=== PATIENT | female | born 1975 | race Caucasian/White ===

== ENCOUNTER 2016-03-22 18:28 | Emergency (ER) | payer OTHER ==
[2016-03-22 19:33] VITALS: BP 149/80
--- NOTE | 2016-03-22 19:39 | UC ---
Lower Extremity/Ankle HPI - HPI Summary HPI Summary: slipped and fell on ice this morning about 645--pain in lateral right foot able to weight bear - History of Current Complaint Chief Complaint: UCLowerExtremity Stated Complaint: FOOT INJURY Time Seen by Provider: 03/22/16 19:39 Hx Obtained From: Patient Hx Last Menstrual Period: 1 WEEK AGO ?: No Onset/Duration: Sudden Onset, Lasting Hours Severity Initially: Moderate Severity Currently: Moderate Pain Intensity: 5 Pain Scale Used: 0-10 Numeric Aggravating Factor(s): Standing, Ambulation Alleviating Factor(s): Rest, Elevation Able to Bear Weight: Yes - Allergies/Home Medications Allergies/Adverse Reactions: Allergies Allergy/AdvReac Type Severity Reaction Status Date / Time No Known Allergies Allergy Verified 03/22/16 19:32 Home Medications: Home Medications Ibuprofen TAB* [Advil TAB*] 800 mg PO PRN 03/22/16 [History] Multiple Vitamins W/ Minerals [Multivitamin Adults] 1 tab PO DAILY 03/22/16 [ History Confirmed 03/22/16] PMH/Surg Hx/FS Hx/Imm Hx Previously Healthy: Yes - Surgical History Surgical History: Yes Surgery Procedure, Year, and Place: - Family History Known Family History: Positive: None Family History: no reported cardiovascular issues in family lineage - Social History Occupation: Employed Full-time Lives: With Family Alcohol Use: None Substance Use Type: None Smoking Status (MU): Current Every Day Smoker Type: Cigarettes Amount Used/How Often: 1/2 PPD Review of Systems Constitutional: Negative Skin: Negative Eyes: Negative ENT: Negative Respiratory: Negative Cardiovascular: Negative Gastrointestinal: Negative Genitourinary: Negative Motor: Negative Musculoskeletal: Arthralgia - right 4/5 metatarsal Neurological: Negative Psychological: Negative All Other Systems Reviewed And Are Negative: Yes Physical Exam Triage Information Reviewed: Yes Appearance: Well-Appearing, No Pain Distress, Well-Nourished Vital Signs: Initial Vital Signs Temp 98.8 F 03/22/16 19:29 Pulse 91 03/22/16 19:29 Resp 20 03/22/16 19:29 BP 149/80 03/22/16 19:29 Pulse Ox 98 03/22/16 19:29 Vital Signs Reviewed: Yes Eye Exam: Normal Eyes: Positive: Conjunctiva Clear ENT Exam: Normal ENT: Positive: Normal ENT inspection, Hearing grossly normal, Pharynx normal, Nasal congestion, Nasal drainage. Negative: Tonsillar swelling, Tonsillar exudate, Trismus, Muffled/hoarse voice Dental Exam: Normal Neck exam: Normal Neck: Positive: Supple, Nontender, No Lymphadenopathy Respiratory Exam: Normal Respiratory: Positive: Chest non-tender, No respiratory distress, No accessory muscle use Cardiovascular Exam: Normal Cardiovascular: Positive: RRR, Pulses Normal, Brisk Capillary Refill Musculoskeletal Exam: Normal Musculoskeletal: Positive: Strength Intact, ROM Intact, No Edema Neurological Exam: Normal Neurological: Positive: Alert, Muscle Tone Normal, Fatigued Psychological Exam: Normal Psychological: Positive: Normal Response To Family Skin Exam: Normal Diagnostics - Radiology No standard instances Xray Interpretation: No Acute Changes Radiology Interpretation Completed By: Radiologist Re-Evaluation - Re-Evaluation First Eval Change: Improved - lazara wrap, post op shoe, rice, follow with ortho re-check prn Lower Extremity Course/Dx - Course Course Of Treatment: rice, lazara, post op shoe, ibuprofen follow with ortho prn - Differential Dx/Diagnosis Differential Diagnosis/HQI/PQRI: Contusion, Fracture (Open), Sprain, Strain Provider Diagnoses: Right lateral foot contusion Discharge - Discharge Plan Condition: Stable Disposition: HOME Patient Education Materials: Ibuprofen (By mouth), Foot Contusion (ED), RICE Therapy (ED) Forms: *Work Release Referrals: Rosa Elena Bowens MD [Medical Doctor] - 5 Days No Primary Care Phys,NOPCP [Primary Care Provider] -
--- NOTE | 2016-03-22 20:15 | RAD ---
HISTORY: Fifth metatarsal pain after fall COMPARISONS: None VIEWS: 3, Frontal, lateral, and oblique views of the right foot FINDINGS: BONE DENSITY: Normal. BONES: There is no displaced fracture. There are calcaneal enthesophytes. JOINTS: There is osteoarthritis of the first MTP joint. There is osteoarthritis of the midfoot. ALIGNMENT: There is mild hallux valgus SOFT TISSUES: Unremarkable. OTHER FINDINGS: None. IMPRESSION: OSTEOARTHRITIS. NO ACUTE OSSEOUS INJURY. IF SYMPTOMS PERSIST, RECOMMEND REPEAT IMAGING.
== END 2016-03-22 21:00 | disposition home or self-care (01) ==
LOC: UCEAST 18:28
DX: S90.31XA Contusion of right foot, initial encounter (principal); W00.0XXA Fall on same level due to ice and snow, initial encounter; Y93.9 Activity, unspecified; Y92.9 Unspecified place or not applicable; F17.210 Nicotine dependence, cigarettes, uncomplicated
CPT/HCPCS: 99203; G0463

== ENCOUNTER 2017-01-21 16:10 | Emergency (ER) | payer OTHER ==
[2017-01-21 16:24] VITALS: BP 146/85
--- NOTE | 2017-01-21 18:29 | UC ---
Inocencia Manning Gabriel, scribed for Hong Heaton MD on 01/21/17 at 1808 . General HPI - HPI Summary HPI Summary: This patient is a 41 year old F presenting to [facility] with a chief complaint of yellow diarrhea since 4 days ago. She reports 15 BMs a day. The patient rates the pain 5/10 in severity. Symptoms alleviated by nothing. Pt has taken Imodium with no relief. Patient reports nausea and ABD pain. Patient denies vomiting, fever, melena, dizziness, lightheadedness, back pain, and ABD distension. Patient reports similar symptoms 2 weeks ago that lasted for 5 days, resolved but recently returned. She denies recently travel or recently antibiotic usage. - History of Current Complaint Chief Complaint: UCGI Stated Complaint: GI UPSET Time Seen by Provider: 01/21/17 17:55 Hx Obtained From: Patient Hx Last Menstrual Period: 1 WEEK AGO Onset/Duration: Lasting Days - 3, Still Present Timing: Constant Onset Severity: Moderate Current Severity: Moderate Pain Intensity: 5 Pain Location at: suprapubic Associated Signs & Symptoms: Positive: Other - nausea and ABD pain - Allergy/Home Medications Allergies/Adverse Reactions: Allergies Allergy/AdvReac Type Severity Reaction Status Date / Time No Known Allergies Allergy Verified 03/22/16 19:32 Home Medications: Home Medications Ibuprofen [Advil] 800 mg PO 01/21/17 [History] PMH/Surg Hx/FS Hx/Imm Hx Previously Healthy: Yes - Surgical History Surgical History: Yes Surgery Procedure, Year, and Place: - Family History Known Family History: Positive: None Family History: no reported cardiovascular issues in family lineage - Social History Occupation: Employed Full-time Alcohol Use: Rare Substance Use Type: None Smoking Status (MU): Light Every Day Tobacco Smoker Type: Cigarettes Amount Used/How Often: 1/2 PPD Review of Systems Constitutional: Negative - fever Gastrointestinal: Abdominal Pain, Diarrhea, Nausea All Other Systems Reviewed And Are Negative: Yes Physical Exam Triage Information Reviewed: Yes Appearance: Well-Appearing, No Pain Distress Vital Signs: Initial Vital Signs Temp 96.5 F 01/21/17 16:21 Pulse 124 01/21/17 16:21 Resp 18 01/21/17 16:21 BP 146/85 01/21/17 16:21 Pulse Ox 97 01/21/17 16:21 Eyes: Positive: Conjunctiva Clear ENT: Positive: Normal ENT inspection, Pharynx normal, TMs normal. Negative: Nasal congestion Neck: Positive: Nontender Respiratory: Positive: Chest non-tender, Lungs clear Cardiovascular: Positive: RRR, No Murmur, Tachycardia Abdomen Description: Positive: Nontender Musculoskeletal: Positive: Strength Intact, ROM Intact Neurological: Positive: Alert, Muscle Tone Normal Psychological: Positive: Age Appropriate Behavior Skin Exam: Normal Course/Dx - Course Course Of Treatment: 41 yr old with nausea and also reports 15 episodes of watery diarrhea for several days. HR is up. She refuses IV line, fluid bolus and transport to ER for further eval of the persitent diarrhea and elevated HR. She signed out AMA. - Differential Dx - Multi-Symptom Provider Diagnoses: tachycardia. Diarrhea. abdominal pain bilateral lower Discharge - Discharge Plan Condition: Good Disposition: AGAINST MEDICAL ADVICE Referrals: No Primary Care Phys,NOPCP [Primary Care Provider] - The documentation as recorded by the Inocencia coronel Gabriel accurately reflects the service I personally performed and the decisions made by me, Hong Heaton MD.
== END 2017-01-21 18:12 | disposition left against medical advice (07) ==
LOC: UCEAST 16:10
DX: R00.0 Tachycardia, unspecified (principal); R19.7 Diarrhea, unspecified; R10.32 Left lower quadrant pain; R10.31 Right lower quadrant pain
CPT/HCPCS: 99212; G0463

== ENCOUNTER 2017-01-21 18:36 | Emergency (ER) | payer OTHER ==
[2017-01-21] MEDS ORDERED: Diphenoxylat/Atrop 2.5-0.025M* 1 TAB PO ONE (22:12)
[2017-01-21 22:35] LABS: Hematocrit 54 % (35-47); Hemoglobin 18.1 g/dl (12.0-16.0); Mean Corpuscular HGB Conc 34 g/dl (31-36); Mean Corpuscular Hemoglobin 30 pg (27-31); Mean Corpuscular Volume 88 fL (80-97); Mean Platelet Volume 8 um3 (7.4-10.4); Red Blood Count 6.11 10^6/ul (4.0-5.4); Red Cell Distribution Width 15 % (10.5-15); White Blood Count 19.4 10^3/ul (3.5-10.8)
[2017-01-21 22:36] LABS: Add Diff/Slide Review? Slide Review Added; Comments Flag Yes
[2017-01-21 22:51] LABS: ALT 19 U/L (7-52); AST 13 U/L (13-39); Albumin 4.1 g/dL (3.2-5.2); Alkaline Phosphatase 55 U/L (34-104); Amylase 10 U/L (29-103); Anion Gap 7 mmol/L (2-11); BUN/Creatinine Ratio 11.1 (8-20); Blood Urea Nitrogen 14 mg/dL (6-24); C Reactive Protein 7.88 mg/L (< 5.00); CO2 Carbon Dioxide 18 mmol/L (22-32); Calcium 9.1 mg/dL (8.6-10.3); Chloride 107 mmol/L (101-111); EGFR African American 59.6 (>60); EGFR Non-African American 46.3 (>60); Globulin 3.1 g/dL (2-4); Glucose 107 mg/dL (70-100); Lipase < 10 U/L (11.0-82.0); Potassium 3.4 mmol/L (3.5-5.0); Sodium 132 mmol/L (133-145); Total Protein 7.2 g/dL (6.4-8.9)
[2017-01-21] MEDS ORDERED: NS 0.9% 1000 ML* 1,000 ML IV ONE (23:07)
[2017-01-22 01:04] VITALS: BP 115/74
[2017-01-22] MEDS ORDERED: Ciprofloxacin TAB* 500 MG PO ONE (01:33)
[2017-01-22] MEDS ORDERED: metroNIDAZOLE TAB* 250 MG PO ONE (01:33)
--- NOTE | 2017-01-22 02:02 | ED ---
John Manning Rebecca, scribed for Scar Gleason MD on 01/21/17 at 2127 . Abdominal Pain/Female - HPI Summary HPI Summary: Pt is a 41 y/o F who presents to ED referred from [facility] c/o nausea and diarrhea. Sx aggravated and alleviated by nothing, unchanged by Immodium. On triage, pt reported mild abdominal pain, ranked 3/10, though on examination she denies any pain. Denies blood in stool, vomiting and fever. Has not been on any Abx recently. - History of Current Complaint Chief Complaint: EDNauseaVomitDiarrh Stated Complaint: DIARRHEA/SENT FROM [facility] Time Seen by Provider: 01/21/17 19:09 Hx Obtained From: Patient Hx Last Menstrual Period: 1 WEEK AGO Onset/Duration: Still Present Severity Initially: Mild - 3/10 Severity Currently: None Pain Intensity: 0 Pain Scale Used: 0-10 Numeric Aggravating Factor(s): Nothing Alleviating Factor(s): Nothing Associated Signs and Symptoms: Positive: Nausea, Diarrhea. Negative: Fever, Blood in Stool, Vomiting Allergies/Adverse Reactions: Allergies Allergy/AdvReac Type Severity Reaction Status Date / Time No Known Allergies Allergy Verified 03/22/16 19:32 PMH/Surg Hx/FS Hx/Imm Hx Cardiovascular History: Denies: Hx Congenital Heart Disease, Hx Myocardial Infarction Respiratory History: Denies: Hx Pneumonia - Surgical History Surgery Procedure, Year, and Place: Infectious Disease History: No Infectious Disease History: Denies: Traveled Outside the [place] in Last 30 Days - Family History Known Family History: Negative: Cardiac Disease Family History: no reported cardiovascular issues in family lineage - Social History Alcohol Use: Rare Substance Use Type: Reports: None Smoking Status (MU): Light Every Day Tobacco Smoker Type: Cigarettes Amount Used/How Often: 1/2 PPD Review of Systems Negative: Fever Positive: Abdominal Pain - on triage, now resolved, Diarrhea, Nausea, Other - NEGATIVE: Blood in stool. Negative: Vomiting All Other Systems Reviewed And Are Negative: Yes Physical Exam - Summary Physical Exam Summary: VITAL SIGNS: Reviewed. GENERAL: ~Patient is a morbidly obese female who is lying comfortable in the stretcher. Patient is not in any acute respiratory distress. HEAD AND FACE: No signs of trauma. No ecchymosis, hematomas or skull depressions. No sinus tenderness. EYES: PERRLA, EOMI x 2, No injected conjunctiva, no nystagmus. EARS: Hearing grossly intact. Ear canals and tympanic membranes are within normal limits. MOUTH: Oropharynx within normal limits. NECK: Supple, trachea is midline, no adenopathy, no JVD, no carotid bruit, no c- spine tenderness, neck with full ROM. CHEST: Symmetric, no tenderness at palpation LUNGS: Clear to auscultation bilaterally. No wheezing or crackles. CVS: Regular rate and rhythm, S1 and S2 present, no murmurs or gallops appreciated. ABDOMEN: Soft, non-tender. No signs of distention. No rebound no guarding, and no masses palpated. Bowel sounds are hyperactive. EXTREMITIES: FROM in all major joints, no edema, no cyanosis or clubbing. NEURO: Alert and oriented x 3. No acute neurological deficits. Speech is normal and follows commands. SKIN: Dry and warm Triage Information Reviewed: Yes Vital Signs On Initial Exam: Initial Vitals Temp Pulse Resp BP Pulse Ox 98.4 F 117 20 137/93 95 01/21/17 18:42 01/21/17 18:42 01/21/17 18:42 01/21/17 18:42 01/21/17 18:42 Vital Signs Reviewed: Yes Diagnostics - Vital Signs Vital Signs Temp Pulse Resp BP Pulse Ox 01/21/17 18:42 98.4 F 117 20 137/93 95 - Laboratory Result Diagrams: 01/21/17 22:25 01/21/17 22:25 Lab Statement: Any lab studies that have been ordered have been reviewed, and results considered in the medical decision making process. Re-Evaluation - Re-Evaluation First Eval Re-Evaluation Time: 01:53 Comment: Pt's sx have improved. Abdominal Pain Fem Course/Dx - Course Course Of Treatment: Pt is a 41 y/o F who presents to ED referred from [facility] c/ o nausea and diarrhea. Sx unchanged by Immodium. On triage, pt reported mild abdominal pain, ranked 3/10, though on examination she denies any pain. Denies blood in stool, vomiting and fever. Has not been on any Abx recently. Pt received Cipro, Flagyl, Lomotil and fluids in the ED which improved sx. She will be D/C to home with Dx of infectious diarrhea with Rx for Cipro and Flagyl. She understands and agrees. Elevated BP noted. Medications reviewed. - Diagnoses Provider Diagnoses: Infectious diarrhea Discharge - Discharge Plan Condition: Stable Disposition: HOME Prescriptions: Ciprofloxacin TAB* [Cipro 500 MG TAB*] 500 mg PO BID #14 tab Metronidazole [Flagyl 500 MG TAB] 500 mg PO TID #21 tab Patient Education Materials: Acute Diarrhea (ED) Referrals: [facility] [Outside] Additional Instructions: RETURN TO EMERGENCY DEPARTMENT FOR ANY NEW OR WORSENING SYMPTOMS The documentation as recorded by the John coronel Rebecca accurately reflects the service I personally performed and the decisions made by , Scar Gleason MD.
--- NOTE | 2017-01-23 01:10 | PN ---
Progress Note - Progress Note Date of Service: 01/23/17 Note: Patient c diff neg. will wait for final stool cultures.
--- NOTE | 2017-01-23 12:28 | ED ---
Progress - Progress Note Progress Note: Pt's Re-Evaluation - Re-Evaluation First Eval Re-Evaluation Time: 01:53 Comment: Pt's sx have improved. Course/Dx - Course Course Of Treatment: Pt is a 41 y/o F who presents to ED referred from [facility] c/ o nausea and diarrhea. Sx unchanged by Immodium. On triage, pt reported mild abdominal pain, ranked 3/10, though on examination she denies any pain. Denies blood in stool, vomiting and fever. Has not been on any Abx recently. Pt received Cipro, Flagyl, Lomotil and fluids in the ED which improved sx. She will be D/C to home with Dx of infectious diarrhea with Rx for Cipro and Flagyl. She understands and agrees. Elevated BP noted. Medications reviewed. - Diagnoses Provider Diagnoses: Infectious diarrhea
--- NOTE | 2017-01-23 12:32 | ED ---
Progress - Progress Note Progress Note: Pt's stool cx reveals + immunoassay. This correlates w/ note reporting diarrhea. She was d/c'd w/ cipro. No change in tx at this time. Re-Evaluation - Re-Evaluation First Eval Re-Evaluation Time: 01:53 Comment: Pt's sx have improved. Course/Dx - Course Course Of Treatment: Pt is a 41 y/o F who presents to ED referred from [facility] c/ o nausea and diarrhea. Sx unchanged by Immodium. On triage, pt reported mild abdominal pain, ranked 3/10, though on examination she denies any pain. Denies blood in stool, vomiting and fever. Has not been on any Abx recently. Pt received Cipro, Flagyl, Lomotil and fluids in the ED which improved sx. She will be D/C to home with Dx of infectious diarrhea with Rx for Cipro and Flagyl. She understands and agrees. Elevated BP noted. Medications reviewed. - Diagnoses Provider Diagnoses: Infectious diarrhea
== END 2017-01-22 02:21 | disposition home or self-care (01) ==
LOC: ED 18:36
DX: A09 Infectious gastroenteritis and colitis, unspecified (principal); R11.0 Nausea; F17.210 Nicotine dependence, cigarettes, uncomplicated; E66.01 Morbid (severe) obesity due to excess calories
CPT/HCPCS: 36415; 80053; 82150; 82270; 83630; 83690; 84702; 85025; 86140; 87045; 87046; 87077; 87493; 87899; 96360; 99283; A9270-GY

== ENCOUNTER 2019-05-01 10:52 | Day surgery (SDC) | payer OTHER ==
--- NOTE | 2019-05-01 11:13 | ED ---
Abdominal Pain/Female - HPI Summary HPI Summary: This pt is a 43 Y/O F presenting to [facility] with a CC of RLQ abdominal pain that is rated an 8/10 in severity and has been intermittent since last weekend. She states that she has had diarrhea starting today accompanied by increasing abdominal pain this morning. She also states that she has had chills during these episodes. She states a decreased appetite. She states that she is recently getting over a cold that her mother had. Pt denies any fever, chills, erythema of eyes, sore throat, CP, SOB, cough, N/V, dysuria, hematuria, myalgia , edema, rash, or dizziness. She has a PMHx of ovarian cysts. She has no aggravating or alleviating symptoms. - History of Current Complaint Chief Complaint: EDNolberto Stated Complaint: LOW ABD PAIN PER PT Time Seen by Provider: 05/01/19 11:10 Hx Obtained From: Patient ?: No Onset/Duration: Sudden Onset, Lasting Weeks - 1, Still Present Timing: Intermittent Episode Lasting Severity Initially: Moderate Severity Currently: Severe Pain Intensity: 8 Pain Scale Used: 0-10 Numeric Location: Discrete At: RLQ Radiates: No Aggravating Factor(s): Nothing Alleviating Factor(s): Nothing Associated Signs and Symptoms: Positive: Negative - chills, erythema of eyes, sore throat, SOB, cough, N/V, dysuria, hematuria, myalgia, edema, rash, Decreased Appetite, Diarrhea. Negative: Fever, Chest Pain, Dizzy, Urinary Symptoms, Nausea, Vomiting Allergies/Adverse Reactions: Allergies Allergy/AdvReac Type Severity Reaction Status Date / Time No Known Allergies Allergy Verified 05/01/19 10:56 Home Medications: Home Medications Ibuprofen TAB* [Advil TAB*] 200 mg PO Q6H PRN 05/01/19 [History Confirmed ] Multivitamins/Minerals TAB* [Theragran/minerals TAB*] 1 tab PO DAILY 05/01/19 [ History Confirmed 05/01/19] PMH/Surg Hx/FS Hx/Imm Hx Previously Healthy: Yes Cardiovascular History: Denies: Hx Congenital Heart Disease, Hx Myocardial Infarction Respiratory History: Denies: Hx Pneumonia - Cancer History Hx Chemotherapy: No Hx Radiation Therapy: No - Surgical History Surgical History: Yes Surgery Procedure, Year, and Place: - Immunization History Immunizations Up to Date: Yes Infectious Disease History: No Infectious Disease History: Denies: Traveled Outside the [place] in Last 30 Days - Family History Known Family History: Negative: Cardiac Disease Family History: no reported cardiovascular issues in family lineage - Social History Alcohol Use: Rare Substance Use Type: Reports: None Hx Tobacco Use: Yes Smoking Status (MU): Light Every Day Tobacco Smoker Type: Cigarettes Amount Used/How Often: 1/2 PPD Review of Systems Positive: Chills. Negative: Fever Negative: Erythema Negative: Sore Throat Negative: Chest Pain Negative: Shortness Of Breath, Cough Positive: Abdominal Pain - RLQ, Diarrhea. Negative: Vomiting, Nausea Negative: dysuria, hematuria Negative: Myalgia Negative: Rash Neurological/Mental Status: Negative - dizziness All Other Systems Reviewed And Are Negative: Yes Physical Exam - Summary Physical Exam Summary: Constitutional: Well-developed, Well-nourished, Alert. (-) Distressed, Body limited by body habitus Skin: Warm, Dry HENT: Normocephalic; Atraumatic Eyes: Conjunctiva normal Neck: Musculoskeletal ROM normal neck. (-) JVD, (-) Stridor, (-) Tracheal deviation Cardio: Rhythm regular, rate normal, Heart sounds normal; Intact distal pulses; The pedal pulses are 2+ and symmetric. Radial pulses are 2+ and symmetric. (-) Murmur Pulmonary/Chest wall: Effort normal. (-) Respiratory distress, (-) Wheezes, (-) Rales Abd: Soft, RLQ tenderness, (-) Distension, (-) Guarding, (-) Rebound Musculoskeletal: (-) Edema Lymph: (-) Cervical adenopathy Neuro: Alert, Oriented x3 Psych: Mood and affect Normal Triage Information Reviewed: Yes Vital Signs On Initial Exam: Initial Vitals Temp Pulse Resp BP Pulse Ox 99.1 F 105 16 160/94 96 05/01/19 10:53 05/01/19 10:53 05/01/19 10:53 05/01/19 10:53 05/01/19 10:53 Vital Signs Reviewed: Yes Procedures - Sedation Patient Received Moderate/Deep Sedation with Procedure: No Diagnostics - Vital Signs Vital Signs Temp Pulse Resp BP Pulse Ox 05/01/19 10:53 99.1 F 105 16 160/94 96 - Laboratory Result Diagrams: 05/01/19 11:36 05/01/19 11:36 Lab Statement: Any lab studies that have been ordered have been reviewed, and results considered in the medical decision making process. - CT CT A/P CT Interpretation Completed By: Radiologist Summary of CT Findings: 1. 5.6 CM OVARIAN CYST. 2. FIBROID UTERUS. 3. HEPATOMEGALY WITH FATTY INFILTRATION OF THE LIVER. 4. NORMAL APPENDIX. ED physician has reviewed this report. - Ultrasound Transvaginal US Ultrasound Interpretation Completed By: Radiologist Summary of Ultrasound Findings: 1. The left ovary was not visualized. The right ovary contains a simple appearing 4.9 cm cyst. The right ovarian Doppler signal is scant (could be related to difficult visualization). 2. Fundal uterine fibroid up to 13 cm. ED ida has reviewed this report. Re-Evaluation - Re-Evaluation First Eval Re-Evaluation Time: 14:22 Change: Unchanged Comment: Radiologist informed that the US Transvaginal taken orignially had a full bladder presentation. Another US will not provide any extra help. Second Eval Re-Evaluation Time: 14:39 Change: Worse Comment: Pt states that her pain is rated an 8/10 in severity. Abdominal Pain Fem Course/Dx - Course Course Of Treatment: This pt is a 43 Y/O F presenting to [facility] with a CC of RLQ abdominal pain that is rated an 8/10 in severity and has been intermittent since last weekend. She states that she has had diarrhea starting today accompanied by increasing abdominal pain this morning. She also states that she has had chills during these episodes. She states a decreased appetite. She states that she is recently getting over a cold that her mother had. Her PE found RLQ tenderness. Her PE was limited due to body habitus. She has abnormalities in her WBC, RBC, Absolute neuts, absolute monos, C-Reactive proteins, and Lipase. Transvaginal US: 1. The left ovary was not visualized. The right ovary contains a simple appearing 4.9 cm cyst. The right ovarian Doppler signal is scant (could be related to difficult visualization). 2. Fundal uterine fibroid up to [address] Baptiste, radiologist, recommended Follow up CT, if equivocal fill bladder and repeat US. CT A/P: 1. 5.6 CM OVARIAN CYST. 2. FIBROID UTERUS. 3. HEPATOMEGALY WITH FATTY INFILTRATION OF THE LIVER. 4. NORMAL APPENDIX. Pt will receive a full bladder US. Radiologist informed that the US Transvaginal taken orignially had a full bladder presentation. Another US will not provide any extra help. On re- evaluation at 1437 the pt reported pain 8/[address] Munoz, [employer], will see the pt in the ED and re-evaluate the pt for potential admission due to concerns over ovarian torsion at. Dr. Munoz admitted the pt at 1547 to surgery. She was diagnosed ovarian torsion. - Diagnoses Provider Diagnoses: Ovarian torsion - Provider Notifications Discussed Care Of Patient With: Dariana Munoz Time Discussed With Above Provider: 15:47 Instructed by Provider To: Admit As Inpatient Admit/Transition Orders Completed By ED Provider: Yes - Critical Care Time Critical Care Time: 30-74 min - 45 minutes Discharge ED - Sign-Out/Discharge Documenting (check all that apply): Patient Departure - admitted - Discharge Plan Condition: Good Disposition: ADMITTED TO [facility] Referrals: Mireya Thornton MD [Primary Care Provider] - - Attestation Statements Document Initiated by Scribe: Yes Documenting Scribe: Jaylen Morales Provider For Whom Scribe is Documenting (Include Credential): Guanaco Wright MD Scribe Attestation: Jaylen Manning, scribed for Guanaco Wright MD on 05/01/19 at 1546. Status of Scribe Document: Ready
[2019-05-01 11:51] LABS: ABS Basophils 0.1 10^3/ul (0-0.2); ABS Eosinophils 0.1 10^3/ul (0-0.6); ABS Lymphocytes 1.2 10^3/ul (1.0-4.8); ABS Monocytes 1.3 10^3/ul (0-0.8); ABS Neutrophils 14.7 10^3/ul (1.5-7.7); Eosinophil % 0.6 %; Hematocrit 45 % (35-47); Hemoglobin 15.2 g/dL (12.0-16.0); Lymphocyte % 7.1 %; Mean Corpuscular HGB Conc 34 g/dL (31-36); Mean Corpuscular Hemoglobin 30 pg (27-31); Mean Corpuscular Volume 89 fL (80-97); Mean Platelet Volume 7.9 fL (7.4-10.4); Platelet Count 272 10^3/uL (150-450); Red Blood Count 4.99 10^6 /uL (3.70-4.87); Red Cell Distribution Width 15 % (10-15); White Blood Count 17.4 10^3/uL (3.5-10.8)
[2019-05-01 12:05] LABS: Albumin 3.9 g/dL (3.2-5.2); Albumin/Globulin Ratio 1.3 (1-3); BUN/Creatinine Ratio 13.8 (8-20); C Reactive Protein 25.09 mg/L (<8.01); EGFR African American 119.3 (>60); EGFR Non-African American 98.6 (>60); Globulin 3.1 g/dL (2-4); Potassium 3.9 mmol/L (3.5-5.0); Total Bilirubin 0.3 mg/dL (0.2-1.0)
[2019-05-01 12:11] LABS: HCG Pregnancy 0.66 mIU/mL
[2019-05-01] MEDS ORDERED: Iohexol 300* (CONTRAST) 10 ML SDV IV ONE (13:23)
[2019-05-01 13:49] LABS: Urine Appearance Cloudy; Urine Bilirubin Negative (Negative); Urine Blood 2+ (Negative); Urine Color Yellow; Urine Glucose Negative (Negative); Urine Ketones Negative (Negative); Urine Nitrite Negative (Negative); Urine Protein Negative (Negative); Urine Urobilinogen Negative (Negative)
[2019-05-01 13:57] LABS: Urine Bacteria 1+ (Absent); Urine Red Blood Cell Trace(0-2/hpf) (Absent); Urine Squamous Epithelial Cell Present (Absent); Urine White Blood Cell Trace(0-5/hpf) (Absent)
[2019-05-01] MEDS ORDERED: oxyCODONE/Acetamin 5/325 MG* TAB PO ONE (14:36)
[2019-05-01] MEDS ORDERED: ceFAZolin 2 GM PREMIX in ORs 2 GM/50 ML BAG ONE (16:44)
[2019-05-01] MEDS ORDERED: ceFAZolin 1 GM ADVAN(*) 1 GM ADDV.VIAL IVPB ONE (16:45)
--- NOTE | 2019-05-01 16:59 | HP ---
HISTORY AND PHYSICAL: DATE OF ADMISSION: CHIEF COMPLAINT: Right-sided abdominal pain. HISTORY OF PRESENT ILLNESS: The patient is a 43-year-old 3, para 1-0-2-1, who comes in with right lower quadrant pain intermittent since this past Saturday, so 5 days of intermittent pain. The p atxander has the pain escalated today and required her to come to the emergency room for evaluation. T he patient does not routinely get gynecologic care. Her last pelvic exam was approximately 20 years ago and notes that she does not have a primary care that she routinely sees. The patient does note t hat she did have breakfast this morning at 9 a.m. and did have some sips of coke around 3 p.m. today. She has had no nausea, vomiting, or diarrhea. Just has right lower quadrant pain that is intermitt ent. The patient notes that she last had sexual intercourse in November, did not use condoms, has not had STI screening. PAST MEDICAL HISTORY: The patient does not get medical care, so there is no known history of medical issues per patient. PAST SURGICAL HISTORY: Noted for primary section in 1996 and incision and drainage of a rig ht lower leg cellulitis. ALLERGIES: No known drug allergies. SOCIAL HISTORY: She is not in a stable relationship. Positive 1 pack per day smoker. Occasional al cohol consumption. Denies any illicit drug use. Works at [employer]. OBSTETRIC HISTORY: She had a primary low transverse section in 1996. PHYSICAL EXAMINATION VITAL SIGNS: Blood pressure is 160/94, temp is 99.1, pulse is 105, respiratory rate 16, O2 sat 96%. HEENT: Supple, nontender. No masses. LUNGS: Clear to auscultation. CARDIOVASCULAR: Regular rate and rhythm. Normal S1, S2. ABDOMEN: Tenderness in the right lower quadrant and also across the mid upper abdomen. No rebound. Positive guarding. PELVIC EXAM: External genitalia without lesions. Small boil on the mons to the left. Vaginal mucos a without purulent drainage. No masses. Cervix with normal appearance. No cervical motion tenderne ss. Uterus is slightly enlarged, nontender. Adnexa on the right is tender, left is nontender. EXTREMITIES: Nontender. Right and left lower extremities with evidence of chronic venous stasis. T here is an old incision and drainage site on the right lower extremity from cellulitis. It is healed incision. DIAGNOSTIC STUDIES/LAB DATA: Blood work: CBC: White count is 17.4, hemoglobin 15.2, hematocrit 45 , platelet count 272, absolute neutrophils 14.7. Sodium 138, potassium 3.9, chloride 105, carbon richard xide 25, BUN 9, creatinine 0.65, glucose is 105. C-reactive protein is 25.9. Beta hCG is negative. Urine: Specific gravity is 1.010, 2+ blood, epithelial cells present, bacteria present, oxalate cry stals present, urine glucose negative, leukocyte esterase negative. GC and chlamydia culture pending . ASSESSMENT AND PLAN: The patient is a 43-year-old 3, para 1 who presents with 5-day history of intermittent right lower quadrant pain. Pelvic ultrasound that reveals a 5 cm ovarian mass with p oor flow to the right ovary, possible ovarian torsion. CT scan revealed a normal-appearing appendix. Given these findings, current recommendation is to do a diagnostic laparoscopy and possible right s alpingo-oophorectomy if there is evidence of torsion of the right fallopian tube and ovary. The shaheed ent is aware of the risks and benefits of the surgery including, but not accepts all of it; the risks associated with the surgery including, but not limited to infection, bleeding, damage to internal or marifer, wound infection, and need for further surgery. Consent form signed after personally reviewing it with the patient. Plan is to proceed with laparoscopic diagnostic procedure and probable right sa lpingo-oophorectomy for probable right ovarian torsion. [id number]/[facility] #: [id number]
[2019-05-01] MEDS ORDERED: Bupivacaine 0.25% SDV* 30 ML ONE (17:13)
[2019-05-01] MEDS ORDERED: Dexamethasone IV* 4 MG/ML 1 ML (4 MG) ONE (17:19)
[2019-05-01] MEDS ORDERED: Famotidine IV* 10 MG/ML 2 ML (20 mg) ONE (17:19)
[2019-05-01] MEDS ORDERED: Famotidine IV* 10 MG/ML 2 ML (20 mg) IV ONE (17:27)
[2019-05-01] MEDS ORDERED: HYDROcodone/ACETAMIN 5-325 MG* 1 TAB PO PRN (17:27)
[2019-05-01] MEDS ORDERED: DiMENhydriNATE IV* 50 MG/ML VIAL IV PUSH PRN (17:27)
[2019-05-01] MEDS ORDERED: Levalbuterol 0.63MG/3ML NEB* UNIT OF USE INH PRN (17:27)
[2019-05-01] MEDS ORDERED: Dexamethasone IV* 4 MG/ML 1 ML (4 MG) IV SLOW PU ONE (17:27)
[2019-05-01] MEDS ORDERED: Naloxone* 0.4 MG/ML 1 ML VIAL IV PRN (17:27)
[2019-05-01] MEDS ORDERED: Buffered Lidocaine 1% SYRIN* 1 ML/SYRINGE INTRADERM ONE (17:27)
[2019-05-01] MEDS ORDERED: oxyCODONE/Acetamin 5/325 MG* TAB PO PRN (17:27)
[2019-05-01] MEDS ORDERED: fentaNYL* 50 MCG/ML 2 ML VIAL (100 MCG VIAL) IV PRN (17:27)
[2019-05-01] MEDS ORDERED: fentaNYL* 50 MCG/ML 5 ML VIAL (250 MCG VIAL) ONE (17:37)
[2019-05-01] MEDS ORDERED: Propofol* 10 MG/ML 20 ML BTL ONE (17:37)
[2019-05-01] MEDS ORDERED: Succinylcholine* 20 MG/ML 10 ML VIAL ONE (17:37)
[2019-05-01] MEDS ORDERED: Midazolam* 1 MG/ML 5 ML VIAL (5 MG) ONE (17:37)
[2019-05-01] MEDS ORDERED: Lidocaine 2% PF * 5 ML VIAL ONE (17:37)
[2019-05-01] MEDS ORDERED: Lidocaine 1% w EPI 1:200,000* SDV 30 ML VIAL ONE (17:42)
[2019-05-01] MEDS ORDERED: Lactated Ringers 1000 ML Bag* 1,000 ML IV SCH (18:00)
[2019-05-01] MEDS ORDERED: Rocuronium* 10 MG/ML VIAL ONE (18:07)
[2019-05-01] MEDS ORDERED: EPHEDrine (Pressors)* 50 MG/ML VIAL ONE (18:11)
[2019-05-01] MEDS ORDERED: Ondansetron INJ* 2 MG/ML VIAL ONE (18:41)
[2019-05-01] MEDS ORDERED: Sugammadex * 500 MG/5 ML VIAL IV PUSH ONE (18:44)
[2019-05-01] MEDS ORDERED: Ibuprofen TAB* 600 MG ONE (19:51)
[2019-05-01] MEDS ORDERED: oxyCODONE/Acetamin 5/325 MG* TAB ONE (20:13)
[2019-05-01 20:16] VITALS: BP 117/68
--- NOTE | 2019-05-01 21:55 | OP ---
OPERATIVE REPORT: DATE OF OPERATION: 05/01/19 DATE OF : 71 SURGEON: Dariana Munoz MD SQL MANAGER: Dr. Romaine Arevalo. ANESTHESIOLOGIST: Dr. Owen. ANESTHESIA: General endotracheal and local. PRE-OP DIAGNOSES: Right-sided abdominal pain, probable right ovarian torsion. POST-OP DIAGNOSES: Degenerating fibroid and right ovarian cyst. OPERATIVE PROCEDURE: Diagnostic laparoscopy and right ovarian cystotomy. ESTIMATED BLOOD LOSS: Minimal. FLUIDS: 1200 cc of crystalloid. URINE OUTPUT: 100 cc of concentrated yellow urine. FINDINGS: Reveals an enlarged degenerating fundal fibroid, approximately 13 to 15 cm. A 4 to 5 cm r ight ovarian cyst with clear fluid and normal-appearing left tube and ovary and normal-appearing ange l, normal-appearing appendix, and normal- appearing liver edge. COMPLICATIONS: None apparent. DISPOSITION: Stable to recovery room. DESCRIPTION OF PROCEDURE: The patient was placed in dorsal lithotomy position. Abdomen and peroneum and vagina were prepped and draped in a sterile standard fashion. The patient was identified with iversal protocol for correct procedure, position, and patient. A self-cath, sterile, was placed with drainage of 100 cc of concentrated yellow urine, self-cath was removed. Sterile speculum was insert ed. Cervix was visualized. Grasped with single-tooth tenaculum and a Hulka clamp was placed for uter ine manipulation. Single-tooth tenaculum removed, speculum removed. Focus was then on the abdominal portion of the case. 10 cc was infused in the infraumbilical area using 1% lidocaine with epi. The incision was made with an 11 scalpel blade. The fascia was grasped with Pricila, incised with [place] sc issors and the peritoneum was then entered bluntly. Hedy 10 mm trocar was then placed, insufflated , and scope was displaced for excellent placement. Pneumoperitoneum was created. Two 5 mm port site s were placed lateral to the umbilical port site using 5 cc of 1% lidocaine with epi at each site. I ncision was made using scalpel. The 5 mm port was placed under direct visualization both on the righ t and the left side. The most obvious abnormality noted was this large fundal fibroid that appeared to be degenerating. The right ovary was noted to have no evidence of torsion and merely have a clear ovarian cyst for which cystotomy was created with blunt probe and drainage of clear fluid was noted. There was no evidence of torsion on either right or left adnexa. The left adnexa was visualized an d ovary and tube were noted to have a normal appearance, and right ovary and fallopian tube were norm al with the exception of the clear right ovarian cyst. Appendix was noted to have a normal appearanc e. The liver edge was normal and bowel with normal appearance. The diagnoses at that point was then made for degenerating fundal fibroid as source of abdominal pain. At that point, the pneumoperitone um was released. The 5 mm trocar and trocar sheaths were removed under direct visualization. The Turner sson trocar was then removed and the fascia was reapproximated using 0 Vicryl in a running fashion an d the skin was then reapproximated using Monocryl and glue adhesive on the skin. The Hulka clamp was removed. All sponge, instrument, and blade counts were correct throughout the case. The patient to lerated the procedure well and went to recovery room in stable condition. [id number]/[facility] #: [id number]
[2019-05-04 11:21] LABS: Chlamydia trachomatis NAA Negative (Negative); Neisseria gonorrhoeae (GC) NAA Negative (Negative)
== END 2019-05-01 20:22 | disposition home or self-care (01) ==
LOC: ED 10:52 → OR 16:35
PROVIDERS: ATTEND Obstetrics & Gynecology
DX: D25.9 Leiomyoma of uterus, unspecified (principal); N83.291 Other ovarian cyst, right side; R10.31 Right lower quadrant pain; N94.89 Other specified conditions associated with female genital organs and menstrual cycle; R19.7 Diarrhea, unspecified; F17.210 Nicotine dependence, cigarettes, uncomplicated; K76.0 Fatty (change of) liver, not elsewhere classified
CPT/HCPCS: 36415; 74177; 76830; 80053; 81003; 81015; 83605; 83690; 84702; 85025; 86140; 87086; 87491; 87591; 99283; A9270-GY; J0330; J0690; J1100; J2001; J2250; J2405; J2704; J3010; J3490; Q9967

== ENCOUNTER 2019-07-09 11:04 | Observation (INO) ==
[2019-07-09] MEDS: NS 0.9% 1000 ml BAG 1,000 ML IV SCH (11:35)
[2019-07-09] MEDS ORDERED: Nitro 2% OINT (Nitroglycerin) 1 INCH/PAK ONE (11:37)
[2019-07-09] MEDS ORDERED: Naloxone 0.4 mg VIAL 0.4 mg/ml 1 ml VIAL IV PUSH PRN (11:42)
[2019-07-09] MEDS ORDERED: Ondansetron 4 mg VIAL 2 MG/ML 2 ml VIAL ONE (11:44)
[2019-07-09] MEDS ORDERED: LORazepam 1 mg TAB (*) ONE (11:45)
[2019-07-09] MEDS ORDERED: oxyCODONE SR 10 mg TAB (*) ONE (11:45)
[2019-07-09 11:50] LABS: ABS Basophils 0.1 10^3/ul (0-0.2); ABS Eosinophils 0.2 10^3/ul (0-0.6); ABS Lymphocytes 1.4 10^3/ul (1.0-4.8); Eosinophil % 1.3 %; Hematocrit 44 % (35-47); Hemoglobin 14.8 g/dL (12.0-16.0); Lymphocyte % 11.1 %; Mean Corpuscular HGB Conc 34 g/dL (31-36); Mean Corpuscular Hemoglobin 30 pg (27-31); Mean Corpuscular Volume 90 fL (80-97); Mean Platelet Volume 8.5 fL (7.4-10.4); Platelet Count 213 10^3/uL (150-450); Red Blood Count 4.91 10^6 /uL (3.70-4.87); Red Cell Distribution Width 17 % (10-15); White Blood Count 12.2 10^3/uL (3.5-10.8)
[2019-07-09 11:57] LABS: Activated Partial Thrombo Time 34.7 seconds (26.0-38.0); INR 1.01 (0.82-1.09)
[2019-07-09] MEDS ORDERED: HYDROmorphone PCA 20 MG/20 ML PCA.SYRING PCA SCH (12:00)
[2019-07-09] MEDS ORDERED: oxyCODONE SR 10 mg TAB (*) PO ONE (12:00)
[2019-07-09] MEDS ORDERED: LORazepam 1 mg TAB (*) PO ONE (12:00)
[2019-07-09] MEDS ORDERED: Nitro 2% OINT (Nitroglycerin) 1 INCH/PAK TOPICAL ONE (12:00)
[2019-07-09] MEDS ORDERED: Clindamycin 900 MG/D5W BAG(*) 900 MG/50 ML BAG IVPB ONE (12:00)
[2019-07-09] MEDS ORDERED: Ondansetron 4 mg VIAL 2 MG/ML 2 ml VIAL IV ONE (12:00)
[2019-07-09] MEDS: Nitro Patch/OINT Remove PATCH TOPICAL ONE (12:40)
[2019-07-09 12:45] LABS: Anion Gap 6 mmol/L (2-11); BUN/Creatinine Ratio 23.9 (8-20); Blood Urea Nitrogen 16 mg/dL (6-24); CO2 Carbon Dioxide 24 mmol/L (22-32); Calcium 8.8 mg/dL (8.6-10.3); Chloride 108 mmol/L (101-111); EGFR African American 115.2 (>60); EGFR Non-African American 95.2 (>60); Glucose 95 mg/dL (70-100); Sodium 138 mmol/L (135-145)
[2019-07-09] MEDS ORDERED: Heparin 2 UNITS/ML 1000 mls 2,000 ML IV ONE (12:52)
[2019-07-09] MEDS ORDERED: Lidocaine 1% VIAL 10 MG/ML VIAL ONE (12:52)
[2019-07-09] MEDS ORDERED: Iohexol 350 (CONTRAST) 200 ML MDV IV ONE (12:55)
[2019-07-09] MEDS ORDERED: fentaNYL 250 mcg/5 ml 50 MCG/ML 5 ml VIAL (250 MCG) ONE (12:59)
[2019-07-09] MEDS ORDERED: Midazolam 5 mg/5 ml VIAL 1 mg/ml 5 ml VIAL (5 mg) ONE (12:59)
[2019-07-09 13:07] LABS: HCG Pregnancy < 0.60 mIU/mL
[2019-07-09] MEDS ORDERED: nitroGLYCERIN DRIP 25,000 MCG/250 ML BTL ONE (13:19)
[2019-07-09] MEDS ORDERED: Prochlorperazine 5 mg/ml 2 ml VIAL (10 mg) ONE (15:44)
[2019-07-09] MEDS ORDERED: HYDROmorphone 1 MG/1 ML SYRINGE ONE (15:45)
[2019-07-09] MEDS ORDERED: Prochlorperazine 5 mg/ml 2 ml VIAL (10 mg) IV PRN (20:41)
[2019-07-09] MEDS: Ondansetron 4 mg VIAL 2 MG/ML 2 ml VIAL IV SCH (21:18)
[2019-07-10] MEDS: NS 0.9% 1000 ml BAG 1,000 ML IV SCH (01:02)
[2019-07-10] MEDS: Nitro Patch/OINT Remove PATCH TOPICAL ONE (01:03)
[2019-07-10] MEDS: Ondansetron 4 mg VIAL 2 MG/ML 2 ml VIAL IV SCH (03:43)
[2019-07-10] MEDS ORDERED: HYDROcodone/ACETAMIN 5/325 mg TAB PO PRN (08:01)
[2019-07-10] MEDS ORDERED: Ketorolac 10 mg TAB (NF) PO SCH (09:00)
[2019-07-10 11:26] VITALS: BP 144/68
[2019-07-12] MEDS ORDERED: Scopolamine PATCH Remove NOTE PATCH OFF ONE (12:00)
== END 2019-07-10 15:04 | disposition home or self-care (01) ==
LOC: SSU 11:04 → CHICATH 11:04
PROVIDERS: ADMIT Internal Medicine; ATTEND Internal Medicine